=== PATIENT | female | born 1980 | race Caucasian/White ===

== ENCOUNTER 2020-11-24 20:26 | Observation (INO) | payer MEDICAID, OTHER ==
[~2020-11-24] VITALS: Ht 175.3 cm; Wt 97.1 kg
[2020-11-24] MEDS ORDERED: NALOXONE 0.4 MG/ML VIAL. IV ONE (20:45)
[2020-11-24] MEDS ORDERED: FLUMAZENIL 0.5 MG/5 ML VIAL. IV ONE (20:45)
[2020-11-24] MEDS ORDERED: IV RINGERS SOLUTION,LACTATED 1,000 ML IV ONE ×2 (20:45→23:00)
[2020-11-24] MEDS: ONDANSETRON PF 4 MG/2 ML VIAL. IVP ONE ×2 (21:00→21:15)
--- NOTE | 2020-11-24 21:16 | PHYS DOC ---
Past History Past Medical History: Bipolar, Other Additional Past Medical Histor: PTSD, JOHNY Past Surgical History: Other Additional Past Surgical Histo: ORAL SX Alcohol Use: Occasionally Adult General Chief Complaint Chief Complaint: DRUG ABUSE HPI HPI Patient is a 36-year-old female who presents with a chief complaint of overdose. Patient states that approximately 3 hours before coming to the emergency department she drank a pint of vodka, took 30 300 mg gabapentin, and thirteen 1 mg Xanax. States she does not have any suicidal ideations and was not trying to hurt herself. Denies any homicidal ideation or hallucinations. States she has had a really bad year and just wanted to be numb for a while. States she pretty much took all of these things over the course of about 15 minutes. States that currently she has some mild nausea but otherwise just feels sad. States she would like to talk to a psychiatrist and be admitted to the hospital if she could. Denies any recent travel, traumas, fevers, Covid/flu symptoms or known ill contacts. States she is currently on her menstrual cycle as well. Review of Systems Review of Systems Review of systems otherwise unremarkable except noted in HPI Current Medications Current Medications Current Medications Medications (Trade) Dose Ordered Sig/Mary Start Time Stop Time Status Last Admin Dose Admin Flumazenil (Romazicon) 0.5 mg 1X ONCE 11/24/20 20:45 11/24/20 20:52 DC Lactated Ringer's 1,000 ml @ 1,000 mls/hr 1X ONCE 11/24/20 20:45 11/24/20 21:44 Naloxone HCl (Narcan) 0.4 mg 1X ONCE 11/24/20 20:45 11/24/20 20:52 DC Ondansetron HCl (Zofran) 4 mg 1X ONCE 11/24/20 21:00 11/24/20 21:01 Allergies Allergies Allergies Coded Allergies Type Severity Reaction Last Updated Verified griggs Allergy Unknown 11/24/20 Yes oxycodone Allergy Unknown 11/24/20 Yes turkey Allergy Unknown 11/24/20 Yes Physical Exam Physical Exam Constitutional: Well developed, well nourished, no acute distress, non-toxic appearance. [] HENT: Normocephalic, atraumatic, bilateral external ears normal, oropharynx moist, no oral exudates, nose normal. [] Eyes: PERRLA, EOMI, conjunctiva normal, no discharge. [] Neck: Normal range of motion, no tenderness, supple, no stridor. [] Cardiovascular: Sinus tachycardia, hypotensive on arrival Lungs & Thorax: Bilateral breath sounds clear to auscultation [] Abdomen: Bowel sounds normal, soft, no tenderness, no masses, no pulsatile masses. [] Skin: Warm, dry, no erythema, no rash. [] Back: No tenderness, no CVA tenderness. [] Extremities: No tenderness, no cyanosis, no clubbing, ROM intact, no edema. [] Neurologic: Alert and oriented X 3, normal motor function, normal sensory function, able to sit, stand and walk no focal deficits noted. [] Psychologic: Affect normal, judgement normal, mood normal. [] Current Patient Data Vital Signs Vital Signs Date Time Temp Pulse Resp B/P (MAP) Pulse Ox O2 Delivery O2 Flow Rate FiO2 11/24/20 20:50 97.4 132 20 76/48 (57) 97 Room Air Lab Results Laboratory Tests Test 11/24/20 20:45 Glucose (Fingerstick) 108 mg/dL (70-99) H EKG EKG Rate of 137, QRS of 72, QTc of 436, no STEMI [] Radiology/Procedures Radiology/Procedures [] Heart Score C/O Chest Pain: No Risk Factors: Risk Factors: DM, Current or recent (<one month) smoker, HTN, HLP, family history of CAD, obesity. Risk Scores: Risk Factors: DM, Current or recent (<one month) smoker, HTN, HLP, family history of CAD, obesity. Course & Med Decision Making Course & Med Decision Making Patient is a 36-year-old female who presents with intentional overdose of gabapentin, Xanax and alcohol with no endorsed intention of suicidal ideation, homicidal ideation or hallucinations. On arrival patient was tachycardic, tachypneic and hypotensive but awake and alert. Given patient's story, she was given flumazenil for the benzodiazepine ingestion. Patient responded almost immediately with normalization of blood p ressure. Patient placed on the monitor with 2 peripheral IV established. Started IV fluid. EKG noted above with sinus tachycardia. Toxicology positive for cannabinoids, and benzodiazepines. Laboratory analysis not concerning. Discussed patient with poison control who felt IV fluids, n.p.o., admission and observation is a good plan given the amount of gabapentin taken. Discussed all these findings with patient and family and recommended admission to the ICU here at [facility] for continued evaluation and treatment including psychiatric evaluation. Patient very grateful, verbalized understanding and agreed with plan of admission. [] Dragon Disclaimer Dragon Disclaimer This electronic medical record was generated, in whole or in part, using a voice recognition dictation system. Departure Departure: Impression: Primary Impression: Overdose of benzodiazepine Additional Impressions: Alcohol overdose Gabapentin overdose Disposition: ADMITTED INPATIENT Admitting Physician: Juwan Tan Condition: IMPROVED Referrals: PCP,UNKNOWN (PCP) Problem Qualifiers DI CORONA MD November 24, 2020 21:16
[2020-11-24 21:31] LABS: BARBITURATES NEG (NEG); BENZODIAZEPINES POS (NEG); CANNABINOIDS POS (NEG); COCAINE NEG (NEG); METHADONE NEG (NEG); OPIATES NEG (NEG); PHENCYCLIDINE NEG (NEG)
[2020-11-24 21:33] LABS: AMPHETAMINE/METHAMPHETAMINE NEG (NEG)
[2020-11-24 21:55] LABS: ACETAMIN < 2.0 mcg/mL (10-30); ETHANOL 141 mg/dL (0-10); SALIC 3.6 mg/dL (2.8-20.0)
[2020-11-24 22:40] LABS: HEMATOCRIT 47.6 % (36.0-47.0); HEMOGLOBIN 15.9 g/dL (12.0-15.5); RED BLOOD COUNT 5.04 x10^6/uL (3.50-5.40); RED CELL DISTRIBUTION WIDTH 12.7 % (11.5-14.5); WHITE BLOOD COUNT 9.5 x10^3/uL (4.0-11.0)
[2020-11-24] MEDS ORDERED: ONDANSETRON PF 4 MG/2 ML VIAL. IVP PRN (22:45)
[2020-11-24 22:49] LABS: CALCIUM 9.3 mg/dL (8.5-10.1); CREATININE 0.8 mg/dL (0.6-1.0); GFR 82.1
[2020-11-25] VITALS (16 sets, daily range): BP systolic 100–133; BP diastolic 66–94
[2020-11-25] MEDS ORDERED: PROMETHAZINE 25 MG TABLET. PO PRN (01:30)
[2020-11-25] MEDS: IV RINGERS SOLUTION,LACTATED 1,000 ML IV SCH ×2 (01:45→10:00)
[2020-11-25] MEDS ORDERED: GABA-586 PO (01:51)
[2020-11-25 07:42] LABS: BASO % 1 % (0-3); EOS # 0.1 x10^3/uL (0.0-0.7); EOS % 1 % (0-3); HEMATOCRIT 39.9 % (36.0-47.0); HEMOGLOBIN 13.5 g/dL (12.0-15.5); LYMPH # 3.9 x10^3/uL (1.0-4.8); LYMPH % 46 % (24-48); MEAN CORPUSCULAR HEMOGLOBIN 32 pg (25-35); MEAN CORPUSCULAR HGB CONC 34 g/dL (31-37); MEAN CORPUSCULAR VOLUME 94 fL (79-100); MONO # 0.5 x10^3/uL (0.0-1.1); MONO % 6 % (0-9); NEUT # 4.1 x10^3uL (1.8-7.7); NEUT % 47 % (31-73); PLATELET COUNT 233 x10^3/uL (140-400); RED BLOOD COUNT 4.25 x10^6/uL (3.50-5.40); RED CELL DISTRIBUTION WIDTH 12.6 % (11.5-14.5); WHITE BLOOD COUNT 8.7 x10^3/uL (4.0-11.0)
[2020-11-25 07:48] LABS: ALBUMIN 3.2 g/dL (3.4-5.0); ALBUMIN/GLOBULIN RATIO 0.9 (1.0-1.7); CALCIUM 8.4 mg/dL (8.5-10.1); CREATININE 0.7 mg/dL (0.6-1.0); GFR 95.8; POTASSIUM 4.2 mmol/L (3.5-5.1); TOTAL BILIRUBIN 0.4 mg/dL (0.2-1.0); TOTAL PROTEIN 6.7 g/dL (6.4-8.2)
[2020-11-25] MEDS ORDERED: METHYL SALICYLATE/MENTHOL TOPICAL OINTMENT 57GM TUBE. TP PRN (17:15)
--- NOTE | 2020-11-25 18:46 | HP ---
ADMIT DATE: 11/25/2020 HISTORY OF PRESENT ILLNESS: The patient is a 40-year-old female patient who presented to the emergency room with a chief complaint of overdose. The patient states that approximately three hours before coming to the Emergency Department, she drank a pint of vodka, she took thirty 300 mg gabapentin and thirteen 1 mg Xanax. She states that she does not have any suicidal ideation and was not trying to hurt herself. Denied any homicidal ideation or hallucination. She stated that she has had a really bad year and just wanted to be numb for a while. She states she pretty much looked all of these things given the course of about 15 minutes. She stated that currently she has some mild nausea, but otherwise just feels sad. She stated that she would like to talk to a psychiatrist and be admitted to the hospital if she could. She denied any recent travel, trauma, fever, COVID, flu symptoms or known ill contacts. She stated that she is currently on her menstrual cycle as well. She was extensively investigated in the Emergency Room and has had lab work that was mostly unremarkable. Her urine test was negative and her urine toxic screen was positive for alcohol with a blood alcohol level of 141, was positive for cannabinoids, but negative for all other drugs. The patient was admitted with overdose of benzodiazepine, alcohol overdose and gabapentin overdose, was admitted to the ICU for one-on-one observation. PAST MEDICAL HISTORY: Significant for bipolar disorder, posttraumatic stress disorder. PAST SURGICAL HISTORY: Significant for extraction of all her teeth. ALLERGIES: SHE IS ALLERGIC TO MELVIN, ONDANSETRON, OXYCODONE AND TURKEY. MEDICATIONS: She is currently on gabapentin 300 mg twice a day. FAMILY HISTORY: Noncontributory. SOCIAL HISTORY: She lives with her boyfriend. She does smoke, drink alcohol occasionally and smokes marijuana. PHYSICAL EXAMINATION: GENERAL: On arrival to the emergency room, she was intoxicated, but she was in no respiratory distress. There was no pallor, jaundice, cyanosis. No lymphadenopathy, no thyromegaly, no jugular venous distention, no lower limb edema. VITAL SIGNS: Heart rate was 132, blood pressure was 76/48, her temperature was 97.4, her respiratory rate was 18 and oxygen saturation was 98% on room air. HEAD, EYES, EARS, NOSE AND THROAT: Normocephalic and atraumatic. NECK: Supple. HEART: Showed normal first and second heart sounds. No gallop, murmur. CHEST: Clear to auscultation. No crepitation or rhonchi. ABDOMEN: Distended, soft, nontender. NEUROLOGIC: She was alert, oriented x3 with normal motor and sensory function without any obvious deficit ____ she was able to sit, stand and walk with no focal deficit noted. LABORATORY DATA: While in the Emergency Room, she has had lab work done which showed that her white cell count was 9500, hemoglobin 16, hematocrit 48, MCV 94 and platelet count 324,000. Her chemistry showed a serum sodium 146, potassium 4, chloride 109, bicarbonate 23, anion gap of 14, BUN 8, creatinine 0.8. Estimated GFR was 82 mL per minute. Her glucose was ____, calcium was 9.3. Her urinalysis showed urine test was negative. Urine toxic screen was positive for benzodiazepine, cannabinoid and alcohol with a blood alcohol level of more than 141 mg/dL. Her coronavirus rapid testing was negative. ASSESSMENT AND PLAN: The patient was given flumazenil and received 2 liters of IV fluid and was admitted to the hospital. Continue on lactated Ringer, promethazine 25 mg every 6 hours and analgesic balm for aches and pain. She was one-on-one sitter. We will consult the Psych assessment team for evaluation and disposition. DARIUSZ/LESLIE DR: DARIUSZ/lazaro TID: [id number]
--- NOTE | 2020-11-25 19:43 | DS ---
DATE OF DISCHARGE: 11/25/2020 HOSPITAL COURSE: The patient is sitting comfortably in her bed, eating her dinner, in no apparent respiratory distress. She denied any complaint. She was evaluated by psych assessment team and apparently recommended the patient can be safely discharged, was given resources to follow. PHYSICAL EXAMINATION: GENERAL: When I examined her this afternoon, she looked well and was clearly in no apparent respiratory distress. No pallor, jaundice, cyanosis, thyromegaly, jugular distention. No limb edema. VITAL SIGNS: Heart rate was 99, blood pressure is 119/72, temperature was 98, respiratory rate was 16 and oxygen saturation was 96% on room air. HEAD, EYES, EARS, NOSE AND THROAT: Normocephalic, atraumatic. NECK: Supple. HEART: Showed normal first and second heart sounds, no gallop, murmur. CHEST: Clear to auscultation. No crepitation or rhonchi. ABDOMEN: Distended, soft, nontender. NEUROLOGIC: She is grossly intact. LABORATORY DATA: This morning showed a white cell count of 8700, hemoglobin 13.5, hematocrit 39.9, MCV 94 and platelet count 233,000. Her chemistry showed a serum sodium 138, potassium 4.2, chloride 107, bicarbonate 25, anion gap of 6, BUN 9, creatinine 0.7. Estimated GFR was 95 mL per minute. Her glucose was 89, calcium was 8.4. Total bilirubin, AST, ALT, alkaline phosphatase were normal. Total protein 6.7, albumin was 3.2 and serum lipase 127. FINAL DISCHARGE DIAGNOSES: Overdose of benzodiazepine, alcohol overdose and gabapentin overdose. She also carries a diagnosis of bipolar disorder, posttraumatic stress disorder, nicotine dependence. CRISS DR: Camila TID: [id number]
== END 2020-11-25 17:50 | disposition home or self-care (01) ==
LOC: ER 20:26 → INTOOBSV 22:45 → EDBD 22:45 → ICU 22:45
PROVIDERS: ADMIT Internal Medicine; ATTEND Internal Medicine
DX: T42.4X1A Poisoning by benzodiazepines, accidental (unintentional), initial encounter (principal); Z20.822 Contact with and (suspected) exposure to COVID-19; T42.6X1A Poisoning by other antiepileptic and sedative-hypnotic drugs, accidental (unintentional), initial encounter; T51.0X1A Toxic effect of ethanol, accidental (unintentional), initial encounter; F31.9 Bipolar disorder, unspecified; F43.10 Post-traumatic stress disorder, unspecified; F17.200 Nicotine dependence, unspecified, uncomplicated; F12.90 Cannabis use, unspecified, uncomplicated; Y90.6 Blood alcohol level of 120-199 mg/100 ml; Z79.899 Other long term (current) drug therapy
CPT/HCPCS: 36415; 80048; 80053; 80307; 81025; 82947; 83690; 84484; 85025; 85027; 87426; 93005; 96361; 96374; 99284; G0378; G0480; J3490; J7120; Q0169; 80329; G0379; J2405; 99285-25